=== PATIENT | female | born 1990 | race Caucasian/White ===

== ENCOUNTER 2017-05-27 00:11 | Emergency (ER) | END 2017-05-27 02:15 | disposition home or self-care (01) | DX: M54.5 Low back pain (principal); N30.00 Acute cystitis without hematuria; E66.01 Morbid (severe) obesity due to excess calories; Z68.43 Body mass index [BMI] 50.0-59.9, adult ==

== ENCOUNTER 2018-01-17 12:09 | Emergency (ER) | END 2018-01-17 14:39 | disposition home or self-care (01) ==

== ENCOUNTER 2018-02-02 17:55 | Emergency (ER) | END 2018-02-02 18:42 | disposition left against medical advice (07) ==

== ENCOUNTER 2018-06-03 23:10 | Emergency (ER) | END 2018-06-04 04:10 | disposition home or self-care (01) ==

== ENCOUNTER 2019-06-23 08:52 | Emergency (ER) | payer OTHER ==
[~2019-06-23] VITALS: Wt 90.0 kg
[~2019-06-23 08:52] MED LIST: ACET500C5 PO; AMOX500C2 PO; AZIT250T PO; CIPR500T4 PO; HYDR-4011 PO; IBUP-1542 PO; NAPR-985 PO; PRED20TA PO
[2019-06-23 08:55] VITALS: BP 145/94; PULSE 83; RESP 18
[2019-06-23] MEDS ORDERED: KETOROLAC 60 MG INJ IM STA (09:26)
[2019-06-23] MEDS ORDERED: predniSONE 20 MG TAB PO ONE (09:30)
--- NOTE | 2019-06-23 10:07 | ERD ---
ER Documentation Chief Complaint Chief Complaint LEFT SHOULDER PAIN. NO TRAUMA HPI 29-year-old female presents complaint of left shoulder pain since yesterday. Patient denies any trauma. States that her shoulder feels like it stiffens somewhat difficult to move. Patient denies any numbness, weakness, fevers, chil ls. Has not taken any treatments. ROS All systems reviewed and are negative except as per history of present illness. Medications Home Meds Active Scripts Prednisone* (Prednisone*) 20 Mg Tab, 40 MG PO DAILY for 4 Days, TAB Prov:MARITA AGUSTIN 06/23/19 Ibuprofen* (Motrin*) 600 Mg Tab, 600 MG PO Q6, #30 TAB Prov:FILEMONDREA 06/04/18 Acetaminophen* (Tylophen*) 500 Mg Capsule, 1 CAP PO Q6H PRN for PAIN AND OR ELEVATED TEMP, #30 CAP Prov:CYNTHIA WARRENC 01/17/18 Naproxen* (Naprosyn*) 500 Mg Tablet, 500 MG PO BID PRN for PAIN AND/OR INFLAMMATION, #30 TAB Prov:CYNTHIA WARRENC 01/17/18 Ciprofloxacin Hcl* (Ciprofloxacin Hcl*) 500 Mg Tablet, 500 MG PO BID for 10 Days, TAB Prov:DOMINIQUE OCAMPO NP 05/27/17 Hydrocodone/Acetaminophen ([place] 5-325 Tablet) 1 Each Tablet, 1 TAB PO Q6H PRN for SEVERE PAIN LEVEL 7-10, #20 TAB Prov:DOMINIQUE OCAMPO NP 05/27/17 Ibuprofen* (Motrin*) 600 Mg Tab, 600 MG PO Q6H PRN for PAIN AND OR ELEVATED TEMP, #30 TAB Prov:DOMINIQUE OCAMPO NP 05/27/17 Ibuprofen* (Motrin*) 600 Mg Tab, 600 MG PO Q6H PRN for PAIN AND OR ELEVATED TEMP, #30 TAB Prov:ANN BUTLER PA-C 04/10/16 Amoxicillin* (Amoxicillin*) 500 Mg Cap, 500 MG PO BID for 7 Days, CAP Prov:ANN BUTLER PA-C 04/10/16 Azithromycin* (Zithromax*) 250 Mg Tablet, 250 MG PO .SAMIA DIRECTED, #6 TAB TAKE 500 MG (2 TABS) THE FIRST DAY THEN 250 MG (1 TAB) DAYS 2-5 Prov:NAINA PETERSON 01/04/16 Allergies Allergies: Coded Allergies: No Known Allergy (Unverified , 01/17/18) PMhx/Soc Medical and Surgical Hx: pt denies Surgical Hx History of Surgery: No Anesthesia Reaction: No Hx Neurological Disorder: No Hx Respiratory Disorders: No Hx Cardiac Disorders: No Hx Psychiatric Problems: No Hx Miscellaneous Medical Probl: Yes (Morbid Obesity,Amenorrhea) Hx Alcohol Use: No Hx Substance Use: No Hx Tobacco Use: No Smoking Status: Never smoker FmHx Family History: No diabetes, No coronary disease, No other Physical Exam Vitals Vital Signs Date Temp Pulse Resp B/P (MAP) Pulse Ox O2 O2 Flow FiO2 Time Delivery Rate 06/23/19 97.4 83 18 145/94 99 08:55 (111) Physical Exam Const: No acute distress Head: Atraumatic Eyes: Normal Conjunctiva ENT: Normal External Ears, Nose and Mouth. Neck: Full range of motion. No meningismus. Resp: Clear to auscultation bilaterally Cardio: Regular rate and rhythm, no murmurs Abd: Soft, non tender, non distended. Normal bowel sounds Skin: No petechiae or rashes Back: No midline or flank tenderness Ext: No cyanosis, or edema Neur: Awake and alert Psych: Normal Mood and Affect Upper Extremity - bilateral: Skin: No laceration, or evidence of external trauma Compartments: Soft Motor: Moderately impaired rotation of left shoulder. Full active range of motion elbow/wrist/hand Sensation: Intact shoulder/pinky/middle finger/thumb web space Bones: Nontender humerus/elbow/forearm/wrist/hand Snuffbox: Nontender Joints: No effusion Pulses/Perfusion: 2+ radial, Capillary refill < 2 seconds Results 24 hrs Laboratory Tests Test 06/23/19 09:35 POC Beta HCG, Qualitative NEGATIVE Current Medications Medications Dose Sig/Juan Francisco Start Time Status Last (Trade) Ordered Route PRN Stop Time Admin Dose Reason Admin Ketorolac 60 mg ONCE STAT 06/23/19 DC 06/23/19 Tromethamine IM 09:26 06/23/19 09:36 (Toradol) 09:28 Prednisone 40 mg ONCE ONCE 06/23/19 DC 06/23/19 (Prednisone) PO 09:30 06/23/19 09:32 09:31 Procedures/MDM MDM: Patient's presentation is consistent with nerve impingement of shoulder versus possible adhesive capsulitis. Patient given Toradol and prednisone in the ER and discharged with 4-day course of prednisone. Patient was advised that if this does not help she should consider getting a steroid injection in the shoulder as an outpatient. I have low suspicion for neurovascular compromise, compartment syndrome, fracture, osteomyelitis, septic joint, DVT, or any emergent condition. At this time, patient is stable for discharge and outpatient management. I have instructed the patient to follow-up with his/her primary care physician in 1 day. I have discussed with the patient the possibility of needing to see a specialist for further workup and imaging studies if symptoms persist. I have instructed the patient to promptly return to the ER for any new or worsening symptoms including but not limited to increased pain, fever, nausea, vomiting, weakness or LOC. The patient and/or family expressed understanding of and agreement with this plan. All questions were answered. Home care instructions were provided. DISCLAIMER: Inadvertent spelling and grammatical errors are likely due to EHR/dictation software use and do not reflect on the overall quality of patient care. Also, please note that the electronic time recorded on this note does not necessarily reflect the actual time of the patient encounter. Departure Diagnosis: Primary Impression: Shoulder pain Condition: Stable Patient Instructions: Shoulder Problems, Understanding Frozen Shoulder, Treating Frozen Shoulder: Exercises, Treating Frozen Shoulder: Medical Treatment, Shoulder Pain (Uncertain Cause) Referrals: [facility] YOU HAVE RECEIVED A MEDICAL SCREENING EXAM AND THE RESULTS INDICATE THAT YOU DO NOT HAVE A CONDITION THAT REQUIRES URGENT TREATMENT IN THE EMERGENCY DEPARTMENT. FURTHER EVALUATION AND TREATMENT OF YOUR CONDITION CAN WAIT UNTIL YOU ARE SEEN IN YOUR DOCTORS OFFICE WITHIN THE NEXT 1-2 DAYS. IT IS YOUR RESPONSIBILITY TO MAKE AN APPOINTMENT FOR FOLOW-UP CARE. IF YOU HAVE A PRIMARY DOCTOR --you should call your primary doctor and schedule an appointment IF YOU DO NOT HAVE A PRIMARY DOCTOR YOU CAN CALL OUR PHYSICIAN REFERRAL HOTLINE AT IF YOU CAN NOT AFFORD TO SEE A PHYSICIAN YOU CAN CHOSE FROM THE FOLLOWING [facility] [address] [facility]. [facility] [address] [facility]. [facility] [address] [facility]. [facility] [address] [facility]. [facility] [address] [facility]. [facility] [address] Additional Instructions: FOLLOW UP WITH YOUR PRIMARY CARE PHYSICIAN TOMORROW.Return to this facility if you are not improving as expected. MARITA AGUSTIN Jun 23, 2019 10:07
== END 2019-06-23 09:52 | disposition home or self-care (01) ==
LOC: FTE 08:52
DX: M25.512 Pain in left shoulder (principal)
CPT/HCPCS: 81025; J1885; J7512; 90472